=== PATIENT | female | born 1960 | race Caucasian/White ===

== ENCOUNTER 2016-06-17 13:07 | Emergency (ER) | payer BC ==
[~2016-06-17 13:07] MED LIST: LOPRESS HC100 MG/25 PO; ULTRAM50 PO
== END 2016-06-17 13:11 | disposition home or self-care (01) ==
LOC: ER 13:07
DX: S32.039A Unspecified fracture of third lumbar vertebra, initial encounter for closed fracture (principal); I10 Essential (primary) hypertension; Z79.899 Other long term (current) drug therapy; W19.XXXA Unspecified fall, initial encounter
CPT/HCPCS: 72131; 96372; 99284; A9270-GY; J1170; J2800